=== PATIENT | female | born 1970 | race Caucasian/White ===

== ENCOUNTER → 2020-10-20 | Outpatient (CLI) | payer BC, OTHER | LOC: ECHO 10:00 | DX: I47.1 Supraventricular tachycardia (principal) | CPT/HCPCS: ECHO; 93306 ==

== ENCOUNTER → 2021-01-24 | Outpatient (CLI) | payer BC ==
[~2021-01-24] MED LIST: CARAFATE 1 GM TA1 GM PO; ESCITALOPRAM OXA5 MG PO; LANSOPRAZOLE30 MG PO; VERAPAMIL ER120 M1 PO
[2021-01-24 17:05] LABS: HEMOGLOBIN 13.8 gm/dl (12.3-15.3); RED BLOOD COUNT 4.33 M/UL (4.00-5.10); WHITE BLOOD COUNT 7.7 K/UL (4.5-11.0)
[2021-01-24 17:30] LABS: BUN/CREATININE RATIO 12 (0-10)
== END ==
LOC: NM 01-17 14:30
PROVIDERS: Internal Medicine Cardiovascular Disease
DX: I47.1 Supraventricular tachycardia (principal); R00.2 Palpitations; R07.9 Chest pain, unspecified
CPT/HCPCS: 71046; 80048; 85025; 93017

== ENCOUNTER → 2021-01-26 | Outpatient (CLI) | payer BC | LOC: CATH 01-19 10:30 | DX: I47.1 Supraventricular tachycardia (principal); D50.9 Iron deficiency anemia, unspecified; Z79.899 Other long term (current) drug therapy; Z98.890 Other specified postprocedural states | CPT/HCPCS: 93005; 93613; 93620; 93623; 99152; 99153; C1730; C1733; C1766; J1644; J2250; J3010; J7040; J7050 ==